=== PATIENT | male | born 1945 | race Caucasian/White ===

== ENCOUNTER 2018-01-29 07:15 | Inpatient (IN) | payer MEDICARE, OTHER ==
[2018-01-29] VITALS (49 sets, daily range): BP systolic 73–112; BP diastolic 44–74; PULSE 66–154; RESP 10–29; TEMP 97.9–99.1; O2SAT 91–100
[~2018-01-29] VITALS: Ht 188 cm; Wt 107.1 kg
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
[2018-01-29 07:43] LABS: BASOPHIL % 0.3 % (0.0-2.0); EOSINOPHIL # 0.2 TH/MM3 (0-0.4); EOSINOPHIL % 1.3 % (0.0-4.0); HEMOGLOBIN 12.9 GM/DL (13.0-17.0); LYMPH % 12.3 % (9.0-44.0); MEAN CELL VOLUME 88.2 FL (80.0-100.0); MEAN CORPUSCULAR HEMOGLOBIN 29.3 PG (27.0-34.0); MEAN CORPUSCULAR HGB CONC 33.1 % (32.0-36.0); MEAN PLATELET VOLUME 7.7 FL (7.0-11.0); MONO % 7.1 % (0.0-8.0); MONOCYTE # 1.2 TH/MM3 (0-0.9); PLATELET COUNT 570 TH/MM3 (150-450); RED BLOOD COUNT 4.42 MIL/MM3 (4.50-5.90); RED CELL DISTRIBUTION WIDTH 12.5 % (11.6-17.2); WHITE BLOOD COUNT 16.4 TH/MM3 (4.0-11.0)
[2018-01-29] MEDS ORDERED: DILTIAZEM INJ 125 MG in SODIUM CHLORIDE 0.9% INJ 100 ML IV PRN (07:45)
[2018-01-29] MEDS ORDERED: DILTIAZEM HCL 25 MG/5 ML VIAL IV PUSH ONE (07:45)
[2018-01-29 07:50] LABS: CHLORIDE 106 MEQ/L (98-107); SODIUM (NA) 138 MEQ/L (136-145)
[2018-01-29 07:54] LABS: ALBUMIN 2.8 GM/DL (3.4-5.0); BICARBONATE 24.6 MEQ/L (21.0-32.0); BLOOD UREA NITROGEN 23 MG/DL (7-18); CALCIUM 9.3 MG/DL (8.5-10.1); GLUCOSE,RANDOM 124 MG/DL (74-106); INTERNATIONAL NORMALIZED RATIO 1.1 RATIO; MAGNESIUM 2.2 MG/DL (1.5-2.5); PROTHROMBIN TIME - PATIENT 11.1 SEC (9.8-11.6)
[2018-01-29 07:57] LABS: ALT (GPT) 44 U/L (12-78); AST (GOT) 21 U/L (15-37)
[2018-01-29 07:58] LABS: GLOMERULAR FILTRATION RATE 66 ML/MIN (>89)
[2018-01-29 07:59] LABS: TOTAL PROTEIN 7.5 GM/DL (6.4-8.2)
[2018-01-29 08:00] LABS: ALKALINE PHOSPHATASE 159 U/L (45-117)
[2018-01-29 08:03] LABS: TROPONIN I LESS THAN 0.02 NG/ML (0.02-0.05)
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
[2018-01-29] MEDS ORDERED: SODIUM CHLOR 0.9% 250 ML INJ 250 ML IV ONE (08:30)
[2018-01-29] MEDS ORDERED: IOHEXOL 350 MG/ML 10 ML VIAL (for RAD DIAG) IVCONTRAST ONE (09:08)
[2018-01-29] MEDS ORDERED: DILTIAZEM HCL 25 MG/5 ML VIAL IV ONE (09:15)
[2018-01-29] MEDS ORDERED: SODIUM CHLORID 0.9% 500 ML INJ 500 ML IV ONE (09:15)
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
[2018-01-29] MEDS ORDERED: MIDAZOLAM HCL 2 MG/2 ML VIAL IV PUSH ONE (10:00)
[2018-01-29] MEDS ORDERED: ALBUMIN 25% INJ 100 ML IV ONE (10:30)
[2018-01-29] MEDS ORDERED: BISACODYL 10 MG SUPP RECTAL PRN (10:45)
[2018-01-29] MEDS ORDERED: SODIUM PHOSPHATE INJ 30 MMOL in SODIUM CHLOR 0.9% 250 ML INJ 240 ML IV PRN (10:45)
[2018-01-29] MEDS ORDERED: SODIUM CHLORIDE 0.9% FLUSH 10 ML FLUSH IV FLUSH PRN (10:45)
[2018-01-29] MEDS ORDERED: CHLORHEXIDINE GLUCONATE 2 % 1 PACK (2 CLOTHS) TOP PRN (10:45)
[2018-01-29] MEDS ORDERED: NURSING INFORMATION XX SCH (10:45)
[2018-01-29] MEDS ORDERED: MAGNESIUM HYDROXIDE SUSP 30 ML CUP PO PRN (10:45)
[2018-01-29] MEDS ORDERED: POTASSIUM PHOSPHATE MONOBASIC 500 MG TAB PO PRN (10:45)
[2018-01-29] MEDS ORDERED: POTASSIUM PHOSPHATE INJ 30 MMOL in SODIUM CHLOR 0.9% 250 ML INJ 250 ML IV PRN (10:45)
[2018-01-29] MEDS ORDERED: POTASSIUM CHLOR 20 MEQ PREMIX 100 ML IV PRN ×2 (10:45)
[2018-01-29] MEDS ORDERED: MAGNESIUM OXIDE 400 MG TAB PO PRN (10:45)
[2018-01-29] MEDS ORDERED: POTASSIUM PHOSPHATE MONOBASIC 500 MG TAB PO/TUBE PRN (10:45)
[2018-01-29] MEDS ORDERED: LACTULOSE SYRUP 20 GM/30 ML CUP PO PRN (10:45)
[2018-01-29] MEDS ORDERED: ONDANSETRON HCL 4 MG/2 ML VIAL IV PUSH PRN (10:45)
[2018-01-29] MEDS ORDERED: MAGNESIUM SULFATE INJ 2 GM in SODIUM CHLORIDE 0.9% INJ 96 ML IV PRN (10:45)
[2018-01-29] MEDS ORDERED: SENNOSIDES 8.6 MG TAB PO PRN (10:45)
[2018-01-29] MEDS ORDERED: POTASSIUM CHLORIDE 25 MEQ EFFERVESCENT TAB PO PRN (10:45)
[2018-01-29] MEDS ORDERED: POTASSIUM CHLOR 40 MEQ PREMIX 100 ML IV PRN ×2 (10:45)
[2018-01-29] MEDS ORDERED: MAGNESIUM SULFATE INJ 4 GM in SODIUM CHLORIDE 0.9% INJ 92 ML IV PRN (10:45)
[2018-01-29] MEDS ORDERED: MAGNESIUM SULFATE 1 GM PREMIX 100 ML IV SCH (11:00)
[2018-01-29] MEDS: METOPROLOL TARTRATE 50 MG TAB PO SCH ×2 (11:00→19:00)
--- NOTE | 2018-01-29 11:01 | PD.PROCEDR ---
Procedure Note Procedure Tube Thoracostomy Procedure Note Left 32 Mongolian thoracostomy tube Diagnosis: Left-sided hemothorax Indications: Large left-sided hemothorax with complete collapse of the left lung causing severe dyspnea as well as new onset atrial fibrillation with rapid ventricular response Consent: Obtained from the patient and his . I specifically discussed the risks, benefits, and alternatives of tube thoracostomy as well as the need for open tube thoracostomy versus percutaneous pigtail tube thoracostomy given his hemothorax. Risks include but are not limited to bleeding, infection, injury to surrounding structures, injury to blood vessels, additional bleeding, injury to the heart, injury to abdominal during organs, malposition of the tube. Anesthesia: Versed 2 mg IV, fentanyl 50 mcg IV Description of the Procedure: The patient was placed in the supine position. The arm was abducted above the head and secured. The left lateral chest was prepped and draped sterilely to include the axilla and nipple. 1% Lidocaine was infiltrated subcutaneously and into the tissues down to the periosteum of the rib. The 5th intercostal space was identified. A small incision was made using a #11 blade. At the mid-axillary line, blunt dissection was performed until the rib was palpated. A Marla clamp was used to bluntly enter the pleura immediately above the adjacent rib. The space was opened bluntly with the Marla clamp. A finger was inserted and lung and pleura were felt. A 32 Fr chest tube was inserted along the course of the finger and into the pleural cavity easily and without resistance. The chest tube was connected to a Pleur-o -vac and connected to [id number] suction. The catheter was sutured to the skin using a 0 silk sandal suture and an occlusive dressing was applied. There were no immediate complications noted. There was minimal EBL. The patient tolerated the procedure well. Chest Tube output: 3L sanguinous output A Chest x-ray has been ordered. I personally performed the procedure. Gregory Hastings MD Jan 29, 2018 11:01
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
[2018-01-29] MEDS ORDERED: HYDROmorphone HCL PF 2 MG/ML VIAL IV PUSH PRN (11:15)
[2018-01-29] MEDS: ENOXAPARIN SODIUM 40 MG/0.4 ML SYRINGE SQ SCH (14:27)
[2018-01-29] MEDS ORDERED: METOPROLOL TARTRATE 5 MG/5 ML VIAL IV PUSH STA (14:44)
[2018-01-29] MEDS ORDERED: METOPROLOL TARTRATE 50 MG TAB PO ONE (14:45)
[2018-01-29] MEDS: MAGNESIUM SULFATE 1 GM PREMIX 100 ML IV SCH ×2 (14:54→15:59)
[2018-01-29] MEDS ORDERED: LACTATED RINGER'S 1000 ML INJ 1,000 ML IV ONE ×2 (15:30→19:00)
[2018-01-29] MEDS: IBUPROFEN 400 MG TAB PO PRN (15:59)
[2018-01-29 19:25] LABS: HEMATOCRIT 31.4 % (39.0-51.0); HEMOGLOBIN 10.4 GM/DL (13.0-17.0)
--- NOTE | 2018-01-29 20:46 | EKG ---
Date Performed: 01/29/2018 Time Performed: 07:32:35 PTAGE: 72 years EKG: ATRIAL FIBRILLATION WITH RAPID VENTRICULAR RESPONSE NONSPECIFIC ST & T-WAVE ABNORMALITY ABN ORMAL RHYTHM ECG PREVIOUS TRACING : 04/26/2006 09.19 Compared to previous tracing, AFIB WITH RVR IS NEW DOCTOR: Mitchell Kelly Interpretating Date/Time 01/29/2018 20:46:48
[2018-01-29] MEDS ORDERED: LACTATED RINGER'S 1000 ML INJ 2,000 ML IV ONE (21:00)
[2018-01-29] MEDS: DOCUSATE SODIUM 50 MG/SENNA 8.6 MG TAB PO SCH (21:00)
[2018-01-29] MEDS: SODIUM CHLORIDE 0.9% FLUSH 10 ML FLUSH IV FLUSH SCH (21:03)
[2018-01-30] VITALS (47 sets, daily range): BP systolic 81–133; BP diastolic 53–82; PULSE 74–138; RESP 7–32; TEMP 97.7–100.3; O2SAT 83–100
[2018-01-30] MEDS: CHLORHEXIDINE GLUCONATE 2 % 1 PACK (2 CLOTHS) TOP SCH (04:00)
[2018-01-30 04:50] LABS: HEMATOCRIT 31.2 % (39.0-51.0); HEMOGLOBIN 10.2 GM/DL (13.0-17.0); MEAN CELL VOLUME 88.9 FL (80.0-100.0); MEAN CORPUSCULAR HGB CONC 32.7 % (32.0-36.0); MEAN PLATELET VOLUME 7.5 FL (7.0-11.0); PLATELET COUNT 383 TH/MM3 (150-450); RED BLOOD COUNT 3.51 MIL/MM3 (4.50-5.90); RED CELL DISTRIBUTION WIDTH 12.7 % (11.6-17.2); WHITE BLOOD COUNT 10.6 TH/MM3 (4.0-11.0)
[2018-01-30 05:06] LABS: CALCIUM 8.1 MG/DL (8.5-10.1)
[2018-01-30 05:12] LABS: BICARBONATE 26.8 MEQ/L (21.0-32.0); CREATININE 0.86 MG/DL (0.60-1.30)
[2018-01-30] MEDS ORDERED: METOPROLOL TARTRATE 50 MG TAB PO SCH (06:00)
--- NOTE | 2018-01-30 06:15 | RADRPT ---
EXAM DATE/TIME: 01/30/2018 05:20 [facility] COMPARISON: CHEST SINGLE AP, January 29, 2018, 10:49. INDICATIONS : Shortness of breath. MEDICAL HISTORY : Melanoma. SURGICAL HISTORY : None. ENCOUNTER: Subsequent ACUITY: 2 days PAIN SCORE: Non-responsive. LOCATION: Bilateral chest FINDINGS: A single view of the chest demonstrates persistent left basilar consolidation/effusion. Left thoracos lucina tube in place with no pneumothorax. Right lung remains clear. Heart size is borderline prominent but appears to be well compensated. Levoscoliosis of the thoracolumbar spine with marginal spurs. Mu ltiple lateral right-sided rib fractures.. CONCLUSION: 1. Stable chest with left basilar consolidation/effusion and multiple left-sided rib fractures. 2. Left thoracostomy tube without pneumothorax. Right lung remains clear. Myles Gamino MD on January 30, 2018 at 6:07 Board Certified Radiologist. This report was verified electronically.
[2018-01-30] MEDS: DILTIAZEM HCL 30 MG TAB PO SCH ×2 (08:24→12:13)
[2018-01-30] MEDS: SODIUM CHLORIDE 0.9% FLUSH 10 ML FLUSH IV FLUSH SCH ×2 (08:24→19:47)
[2018-01-30] MEDS: DOCUSATE SODIUM 50 MG/SENNA 8.6 MG TAB PO SCH ×2 (08:25→19:41)
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
[2018-01-30] MEDS ORDERED: CALCIUM GLUCONATE INJ 3 GM in SODIUM CHLORIDE 0.9% INJ 100 ML IV ONE (10:00)
--- NOTE | 2018-01-30 11:37 | ECHRPT ---
Indication: AFIB FLUTTER CONCLUSIONS Technically very difficult and limited study. Grossly, left ventricular function appears to be norm al. Regional wall motion abnormalities cannot be excluded on the basis of this study. Normal left ventr icular size and wall thickness. Trace to mild tricuspid regurgitation. BP: / HR: Rhythm: MEASUREMENTS (Male / Female) Normal Values Technical Quality:Technically difficult study 2D ECHO LV Diastolic Diameter PLAX 5.0 cm 4.2 - 5.9 / 3.9 - 5.3 cm LV Systolic Diameter PLAX 3.9 cm IVS Diastolic Thickness 1.4 cm 0.6 - 1.0 / 0.6 - 0.9 cm LVPW Diastolic Thickness 1.5 cm 0.6 - 1.0 / 0.6 - 0.9 cm LV Relative Wall Thickness 0.6 RV Internal Dim ED PLAX 2.2 cm M-MODE Aortic Root Diameter MM 3.8 cm LA Systolic Diameter MM 3.5 cm LA Ao Ratio MM 0.9 AV Cusp Separation MM 1.6 cm FINDINGS LEFT VENTRICLE Technically very difficult and limited study. Grossly, left ventricular function appears to be norm al. Regional wall motion abnormalities cannot be excluded on the basis of this study. Normal left ventr icular size and wall thickness. RIGHT VENTRICLE Normal right ventricular size and systolic function. LEFT ATRIUM The left atrial size is normal. RIGHT ATRIUM The right atrial size is normal. ATRIAL SEPTUM Normal atrial septal thickness without atrial level shunting by limited color doppler interrogation. AORTA The aortic root and proximal ascending aorta are normal in size on limited imaging. MITRAL VALVE Structurally normal mitral valve. No mitral valve stenosis or regurgitation. AORTIC VALVE Trileaflet aortic valve. No aortic valve stenosis or regurgitation. TRICUSPID VALVE Structurally normal tricuspid valve. Trace to mild tricuspid regurgitation. PULMONARY VALVE The pulmonary valve is not well visualized. VESSELS The inferior vena cava is normal in size. PERICARDIUM No pericardial effusion. Tomas Saenz MD (Electronically Signed) Final Date:30 Jan 2018 11:36
[2018-01-30] MEDS: MAGNESIUM SULFATE 1 GM PREMIX 100 ML IV SCH ×2 (12:12→15:14)
[2018-01-30] MEDS: ENOXAPARIN SODIUM 40 MG/0.4 ML SYRINGE SQ SCH (12:13)
--- NOTE | 2018-01-30 12:26 | RADRPT ---
EXAM DATE/TIME: 01/30/2018 12:04 [facility] COMPARISON: CHEST SINGLE AP, January 30, 2018, 5:20. INDICATIONS : Pneumothorax. MEDICAL HISTORY : melanoma SURGICAL HISTORY : None. ENCOUNTER: Subsequent ACUITY: 3 days PAIN SCORE: 2/10 LOCATION: Left chest FINDINGS: A single AP erect portable view of the chest was obtained and demonstrates a left-sided chest tube in place with no pneumothorax. There is a [id number] left effusion again noted. Multiple left ri b fractures are present. There is abnormal opacity remaining in the left perihilar region left lung b ase without change. The right lung is clear. The heart size is at the upper limits of normal. There i s no subcutaneous emphysema. CONCLUSION: 1. Left-sided chest tube in place with no pneumothorax. 2. [id number] left pleural effusion again noted with abnormal opacity in the left perihilar re gion. 3. Multiple left rib fractures again noted. Efrem Chavez MD on January 30, 2018 at 12:22 Board Certified Radiologist. This report was verified electronically.
[2018-01-30] MEDS ORDERED: DILTIAZEM HCL 25 MG/5 ML VIAL IV STA (13:20)
[2018-01-30] MEDS ORDERED: DILTIAZEM HCL 30 MG TAB PO ONE (15:00)
[2018-01-30] MEDS: IBUPROFEN 400 MG TAB PO PRN (15:13)
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
[2018-01-30] MEDS ORDERED: DILTIAZEM HCL 60 MG TAB PO ONE (17:15)
[2018-01-30] MEDS ORDERED: METOPROLOL TARTRATE 5 MG/5 ML VIAL IV PUSH STA (17:46)
[2018-01-30] MEDS ORDERED: DILTIAZEM 125 MG/NS 100 ML IV PRN ×2 (18:00)
[2018-01-30] MEDS ORDERED: DILTIAZEM HCL 30 MG TAB PO SCH (18:00)
[2018-01-30] MEDS: ACETAMINOPHEN 325 MG TAB PO PRN (19:42)
[2018-01-30] MEDS ORDERED: AMIODARONE INJ 450 MG in D5W (EXCEL BAG) INJ 241 ML IV PRN (22:15)
[2018-01-30] MEDS ORDERED: AMIODARONE 150 MG/D5W 97 ML BOLUS 10 MINUTES IV ONE ×2 (22:15)
[2018-01-30] MEDS: SODIUM CHLOR 0.9% 1000 ML INJ 1,000 ML IV SCH ×2 (22:59→23:17)
[2018-01-30] MEDS: AMIODARONE INJ 450 MG in SODIUM CHLOR 0.9% (EXCEL) INJ 241 ML IV PRN (23:17)
[2018-01-31] VITALS (39 sets, daily range): BP systolic 85–129; BP diastolic 55–73; PULSE 72–114; RESP 15–30; TEMP 97.5–99.4; O2SAT 94–99
[2018-01-31] MEDS: CHLORHEXIDINE GLUCONATE 2 % 1 PACK (2 CLOTHS) TOP SCH (00:14)
[2018-01-31] MEDS: AMIODARONE INJ 450 MG in SODIUM CHLOR 0.9% (EXCEL) INJ 241 ML IV PRN (07:15)
--- NOTE | 2018-01-31 07:22 | RADRPT ---
EXAM DATE/TIME: 01/31/2018 07:05 [facility] COMPARISON: CT PULMONARY ANGIOGRAM, January 29, 2018, 8:48. CHEST SINGLE AP, January 30, 2018, 12:04. INDICATIONS : Evaluate chest tube. MEDICAL HISTORY : melanoma SURGICAL HISTORY : None. ENCOUNTER: Subsequent ACUITY: 3 days PAIN SCORE: 1/10 LOCATION: Left chest FINDINGS: There is a left chest tube. A pneumothorax is not seen. There continues to be increased density at th e mid and lower left chest. Multiple left rib fractures are seen. The right lung is clear. The left h eart border is obscured by the left base process. CONCLUSION: 1. Left chest tube without pneumothorax. 2. Suspected moderate left pleural effusion with some accompanying atelectasis or consolidation invol ving the mid and lower left chest. 3. Left rib fractures. Deven Stone MD on January 31, 2018 at 7:19 Board Certified Radiologist. This report was verified electronically.
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
--- NOTE | 2018-01-31 07:54 | PD.CARD.PN ---
Subjective Subjective Remarks Required amio last night due to difficult to control rates, then converted to SR where he remains, no cardiac sx. Objective Medications Current Medications Medications (Trade) Dose Ordered Sig/Darrius Route Start Time Stop Time Status Last Admin Potassium Chloride 100 ml @ 50 mls/hr Q2H PRN IV 01/29/18 10:45 Potassium Chloride 100 ml @ 50 mls/hr Q2H PRN IV 01/29/18 10:45 (K-Lyte Cl Eff) 50 meq UNSCH PRN PO 01/29/18 10:45 Potassium Chloride 100 ml @ 25 mls/hr UNSCH PRN IV 01/29/18 10:45 Potassium Chloride 100 ml @ 50 mls/hr Q2H PRN IV 01/29/18 10:45 Magnesium Sulfate 4 gm/Sodium Chloride 100 ml @ 50 mls/hr UNSCH PRN IV 01/29/18 10:45 (Mag-Ox) 800 mg UNSCH PRN PO 01/29/18 10:45 Magnesium Sulfate 2 gm/Sodium Chloride 100 ml @ 50 mls/hr UNSCH PRN IV 01/29/18 10:45 (K-Phos) 2,000 mg Q4H PRN PO 01/29/18 10:45 Sodium Phosphate 30 mmol/Sodium Chloride 250 ml @ 42 mls/hr UNSCH PRN IV 01/29/18 10:45 (K-Phos) 2,000 mg UNSCH PRN PO/TUBE 01/29/18 10:45 Potassium Phosphate 30 mmol/ Sodium Chloride 260 ml @ 42 mls/hr UNSCH PRN IV 01/29/18 10:45 (NS Flush) 2 ml UNSCH PRN IV FLUSH 01/29/18 10:45 (NS Flush) 2 ml BID IV FLUSH 01/29/18 21:00 01/30/18 19:47 (Percocet 5-325 Mg) 1 tab Q4H PRN PO 01/29/18 10:45 (Dilaudid Pf Inj) 0.25 mg Q4H PRN IV PUSH 01/29/18 11:15 (Zofran Inj) 4 mg Q6H PRN IV PUSH 01/29/18 10:45 (Duoneb Neb) 1 ampule Q2HR NEB PRN INH 01/29/18 10:45 (Lovenox Inj) 40 mg Q24H SQ 01/29/18 12:00 01/30/18 12:13 ([facility] [place] [facility] [place]) 1 Q361D XX 01/29/18 10:45 (Chlorhexidine 2% Cloth) 3 pack Taper DAILY@04 TOP 01/30/18 04:00 01/26/19 03:59 01/31/18 00:14 (Chlorhexidine 2% Cloth) 3 pack UNSCH PRN TOP 01/29/18 10:45 (Fe-Colace) 1 tab BID PO 01/29/18 21:00 01/30/18 19:41 (Milk Of Magnesia Liq) 30 ml Q12H PRN PO 01/29/18 10:45 (Senokot) 17.2 mg Q12H PRN PO 01/29/18 10:45 (Dulcolax Supp) 10 mg DAILY PRN RECTAL 01/29/18 10:45 (Lactulose Liq) 30 ml DAILY PRN PO 01/29/18 10:45 (Motrin) 400 mg Q6H PRN PO 01/29/18 15:15 01/30/18 15:13 (Cardizem) 60 mg Q6HR PO 01/30/18 18:00 Future Hold (Tylenol) 650 mg Q4H PRN PO 01/30/18 17:15 01/30/18 19:42 Amiodarone HCl 450 mg/Sodium Chloride 250 ml @ 33.33 mls/ hr TITRATE PRN IV 01/30/18 22:30 01/31/18 07:15 Vital Signs / I&O Vital Signs Date Time Temp Pulse Resp B/P (MAP) Pulse Ox O2 Delivery O2 Flow Rate FiO2 01/31/18 07:36 97 Nasal Cannula 01/31/18 07:15 80 99/66 01/31/18 06:00 76 19 105/70 (82) 97 01/31/18 06:00 76 01/31/18 05:30 74 17 99/65 (76) 98 01/31/18 05:30 74 01/31/18 05:00 74 01/31/18 05:00 74 17 95/66 (76) 98 01/31/18 04:30 74 01/31/18 04:30 74 16 98/64 (75) 99 01/31/18 04:00 72 01/31/18 04:00 97.9 72 16 102/68 (79) 98 01/31/18 03:30 72 17 108/69 (82) 99 01/31/18 03:30 72 01/31/18 03:00 74 19 111/70 (84) 98 01/31/18 03:00 74 01/31/18 02:30 72 16 106/64 (78) 98 01/31/18 02:00 74 15 86/58 (67) 98 01/31/18 02:00 74 01/31/18 01:45 74 16 96/65 (75) 99 01/31/18 01:30 72 17 100/68 (79) 99 01/31/18 01:15 74 16 97/67 (77) 98 01/31/18 01:00 74 15 87/59 (68) 98 01/31/18 00:45 74 15 92/59 (70) 98 01/31/18 00:30 74 15 87/62 (70) 98 01/31/18 00:19 74 15 101/61 (74) 98 01/31/18 00:00 72 15 99/62 (74) 98 01/31/18 00:00 72 01/31/18 00:00 97.5 72 15 99/62 (74) 98 01/30/18 23:30 74 15 87/62 (70) 99 01/30/18 23:17 78 90/56 01/30/18 23:01 76 90/56 01/30/18 23:00 76 15 90/56 (67) 100 01/30/18 22:31 78 17 91/55 (67) 98 01/30/18 22:30 78 17 86/53 (64) 99 01/30/18 22:00 78 15 84/57 (66) 98 01/30/18 22:00 78 01/30/18 21:30 80 16 83/60 (68) 98 01/30/18 21:30 80 83/60 01/30/18 21:00 84 19 90/55 (67) 97 01/30/18 21:00 84 90/55 01/30/18 20:30 84 17 86/53 (64) 97 01/30/18 20:30 84 86/53 01/30/18 20:05 97.8 88 30 112/67 (82) 96 01/30/18 20:00 85 01/30/18 19:45 104 24 107/68 (81) 97 01/30/18 19:30 96 Nasal Cannula 2.00 01/30/18 19:30 108 7 118/65 (82) 96 01/30/18 19:30 108 118/65 01/30/18 19:15 110 10 99/66 (77) 96 01/30/18 19:00 108 21 104/64 (77) 97 01/30/18 19:00 108 01/30/18 19:00 108 104/64 01/30/18 18:44 106 86/63 01/30/18 18:10 124 87/58 01/30/18 17:20 138 101/70 01/30/18 16:30 138 23 102/71 (81) 97 01/30/18 16:20 25 01/30/18 16:00 132 01/30/18 16:00 100.3 132 22 104/63 (77) 97 01/30/18 15:30 134 30 99/65 (76) 95 01/30/18 15:00 128 01/30/18 15:00 128 24 97/69 (78) 96 01/30/18 14:30 134 21 103/82 (89) 83 01/30/18 14:00 132 15 92/61 (71) 98 01/30/18 14:00 132 01/30/18 13:30 132 23 112/68 (83) 97 01/30/18 13:02 134 01/30/18 13:02 134 32 133/74 (93) 95 01/30/18 12:30 136 32 103/78 (86) 91 01/30/18 12:08 99.2 128 25 109/66 (80) 97 01/30/18 12:00 98 01/30/18 11:30 98 28 97/71 (80) 97 01/30/18 11:00 94 25 87/68 (74) 97 01/30/18 11:00 94 01/30/18 10:30 84 22 108/65 (79) 96 01/30/18 10:00 114 23 108/64 (79) 99 01/30/18 10:00 114 01/30/18 09:00 106 25 106/67 (80) 98 01/30/18 08:00 98 01/30/18 08:00 98.3 98 18 109/73 (85) 98 I/O 01/30/18 01/30/18 01/30/18 01/31/18 01/31/18 01/31/18 07:00 15:00 23:00 07:00 15:00 23:00 Intake Total 240 ml 864 ml 240 ml Output Total 1025 ml 520 ml 800 ml Balance -785 ml 344 ml -560 ml Intake Oral 240 ml 500 ml 240 ml IV Total 364 ml Output Urine Total 975 ml 450 ml 800 ml Chest Tube Drainage Total 50 ml 70 ml # Bowel Movements 0 0 Physical Exam GENERAL: This is a well-nourished, well-developed patient, in no apparent distress. CARDIOVASCULAR: Regular rate and rhythm without murmurs, gallops, or rubs. RESPIRATORY: Clear to auscultation. Breath sounds equal bilaterally. No wheezes , rales, or rhonchi. GASTROINTESTINAL: Abdomen soft, non-tender, nondistended. Normal active bowel sounds MUSCULOSKELETAL: Extremities without clubbing, cyanosis, or edema. NEURO: Alert & Oriented x4 to person, place, time, situation. Moves all ext x4 Imaging Last 24 hours Impressions Chest X-Ray 01/31/18 0000 Signed Impressions: Service Date/Time: Wednesday, January 31, 2018 07:05 - CONCLUSION: 1. Left chest tube without pneumothorax. 2. Suspected moderate left pleural effusion with some accompanying atelectasis or consolidation involving the mid and lower left chest. 3. Left rib fractures. Deven Stone MD Chest X-Ray 01/30/18 1200 Signed Impressions: Service Date/Time: Tuesday, January 30, 2018 12:04 - CONCLUSION: 1. Left-sided chest tube in place with no pneumothorax. 2. [id number] left pleural effusion again noted with abnormal opacity in the left perihilar region. 3. Multiple left rib fractures again noted. Efrem Chavez MD Assessment and Plan Problem List: (1) Rapid atrial fibrillation ICD Codes: I48.91 - Unspecified atrial fibrillation Status: Acute Plan: Very likely caused by his hemothorax, currently in NSR; not currently an anticoagulation candidate; If he remains in SR would favor d/c geovanna and Dr. Hudson can f/u in the office; he may benefit from either a 30-day holter or loop recorder to evaluate long-term afib burden. (2) Hemothorax, left ICD Codes: J94.2 - Hemothorax Status: Acute Assessment and Plan will be available as needed, please call with questions. Wilner Gonsalez MD January 31, 2018 07:54
[2018-01-31 08:54] LABS: HEMATOCRIT 33.2 % (39.0-51.0); HEMOGLOBIN 10.7 GM/DL (13.0-17.0); MEAN CELL VOLUME 89.7 FL (80.0-100.0); MEAN CORPUSCULAR HEMOGLOBIN 28.9 PG (27.0-34.0); MEAN CORPUSCULAR HGB CONC 32.3 % (32.0-36.0); MEAN PLATELET VOLUME 8.2 FL (7.0-11.0); PLATELET COUNT 368 TH/MM3 (150-450); RED CELL DISTRIBUTION WIDTH 12.5 % (11.6-17.2); WHITE BLOOD COUNT 13.7 TH/MM3 (4.0-11.0)
[2018-01-31 09:09] LABS: CALCIUM 8.2 MG/DL (8.5-10.1)
[2018-01-31 09:10] LABS: BICARBONATE 24.6 MEQ/L (21.0-32.0); MAGNESIUM 2.2 MG/DL (1.5-2.5)
[2018-01-31 09:14] LABS: CREATININE 0.8 MG/DL (0.60-1.30)
[2018-01-31] MEDS: SODIUM CHLORIDE 0.9% FLUSH 10 ML FLUSH IV FLUSH SCH ×2 (09:34→20:00)
[2018-01-31] MEDS: DILTIAZEM HCL 30 MG TAB PO SCH ×3 (09:34→19:28)
[2018-01-31] MEDS: DOCUSATE SODIUM 50 MG/SENNA 8.6 MG TAB PO SCH ×2 (09:35→19:59)
[2018-01-31] MEDS: ENOXAPARIN SODIUM 40 MG/0.4 ML SYRINGE SQ SCH (12:47)
--- NOTE | 2018-01-31 14:41 | RADRPT ---
EXAM DATE/TIME: 01/31/2018 14:07 [facility] COMPARISON: CHEST SINGLE AP, January 31, 2018, 7:05. INDICATIONS : Chest tube removal, short of breath, some increased chest pain. MEDICAL HISTORY : melanoma SURGICAL HISTORY : None. ENCOUNTER: Subsequent ACUITY: 3 days PAIN SCORE: 4/10 LOCATION: Left chest FINDINGS: There is been interval removal of the left-sided chest tube. There is minimal left basilar effusion. There is consolidation in the left lower lobe. No pneumothorax is seen. The right lung is clear. The heart is mildly enlarged. There are multiple left-sided rib fractures. CONCLUSION: 1. No pneumothorax identified following chest tube removal. 2. Consolidative changes in the left lower lobe. Ger Yanes MD on January 31, 2018 at 14:38 Board Certified Radiologist. This report was verified electronically.
[2018-01-31] MEDS: IBUPROFEN 400 MG TAB PO PRN (16:33)
[2018-01-31] MEDS: RESP: ALBUTEROL 2.5 MG/IPRATROPIUM 0.5 MG NEB (PRN) INH (16:53)
[2018-02-01] VITALS (29 sets, daily range): BP systolic 90–115; BP diastolic 58–79; PULSE 80–116; RESP 18–32; TEMP 97.6–99; O2SAT 88–100
[2018-02-01] MEDS: DILTIAZEM HCL 30 MG TAB PO SCH ×3 (00:51→09:25)
[2018-02-01] MEDS: ACETAMINOPHEN 325 MG TAB PO PRN (00:56)
[2018-02-01] MEDS: CHLORHEXIDINE GLUCONATE 2 % 1 PACK (2 CLOTHS) TOP SCH (03:49)
[2018-02-01] MEDS ORDERED: AMIODARONE INJ 450 MG in SODIUM CHLOR 0.9% (EXCEL) INJ 241 ML IV PRN (06:30)
--- NOTE | 2018-02-01 06:46 | RADRPT ---
EXAM DATE/TIME: 02/01/2018 06:04 [facility] COMPARISON: CHEST SINGLE AP, January 31, 2018, 14:07. INDICATIONS : Shortness of breath MEDICAL HISTORY : Melanoma SURGICAL HISTORY : None. ENCOUNTER: Subsequent ACUITY: 4 - 6 days PAIN SCORE: 3/10 LOCATION: Left chest FINDINGS: PA and lateral views of the chest demonstrate multiple left-sided displaced lateral rib fractures. Pe rsistent consolidation/effusion in the adjacent lung parenchyma. There appears be some minimal atelec tasis or scarring in the right midlung laterally. Right lung is otherwise clear. Heart size is normal . CONCLUSION: 1. Multiple left-sided rib fractures. Stable consolidation/effusion in the adjacent left lung base. 2. Minimal atelectasis or scarring laterally in the right midlung. Right lung is otherwise clear. Myles Gamino MD on February 01, 2018 at 6:43 Board Certified Radiologist. This report was verified electronically.
[2018-02-01] MEDS: RESP: ALBUTEROL 2.5 MG/IPRATROPIUM 0.5 MG NEB (PRN) INH ×2 (08:13→16:07)
[2018-02-01] MEDS: SODIUM CHLORIDE 0.9% FLUSH 10 ML FLUSH IV FLUSH SCH ×2 (08:48→20:53)
[2018-02-01] MEDS: DOCUSATE SODIUM 50 MG/SENNA 8.6 MG TAB PO SCH ×2 (08:48→20:53)
[2018-02-01] MEDS ORDERED: DILTIAZEM HCL 30 MG TAB PO ONE (09:30)
--- NOTE | 2018-02-01 12:25 | PD.CARD.PN ---
Subjective Subjective Remarks Went back into afib, rate mildly fast at rest. Objective Medications Current Medications Medications (Trade) Dose Ordered Sig/Darrius Route Start Time Stop Time Status Last Admin Potassium Chloride 100 ml @ 50 mls/hr Q2H PRN IV 01/29/18 10:45 Potassium Chloride 100 ml @ 50 mls/hr Q2H PRN IV 01/29/18 10:45 (K-Lyte Cl Eff) 50 meq UNSCH PRN PO 01/29/18 10:45 Potassium Chloride 100 ml @ 25 mls/hr UNSCH PRN IV 01/29/18 10:45 Potassium Chloride 100 ml @ 50 mls/hr Q2H PRN IV 01/29/18 10:45 Magnesium Sulfate 4 gm/Sodium Chloride 100 ml @ 50 mls/hr UNSCH PRN IV 01/29/18 10:45 (Mag-Ox) 800 mg UNSCH PRN PO 01/29/18 10:45 Magnesium Sulfate 2 gm/Sodium Chloride 100 ml @ 50 mls/hr UNSCH PRN IV 01/29/18 10:45 (K-Phos) 2,000 mg Q4H PRN PO 01/29/18 10:45 Sodium Phosphate 30 mmol/Sodium Chloride 250 ml @ 42 mls/hr UNSCH PRN IV 01/29/18 10:45 (K-Phos) 2,000 mg UNSCH PRN PO/TUBE 01/29/18 10:45 Potassium Phosphate 30 mmol/ Sodium Chloride 260 ml @ 42 mls/hr UNSCH PRN IV 01/29/18 10:45 (NS Flush) 2 ml UNSCH PRN IV FLUSH 01/29/18 10:45 (NS Flush) 2 ml BID IV FLUSH 01/29/18 21:00 02/01/18 08:48 (Percocet 5-325 Mg) 1 tab Q4H PRN PO 01/29/18 10:45 (Dilaudid Pf Inj) 0.25 mg Q4H PRN IV PUSH 01/29/18 11:15 (Zofran Inj) 4 mg Q6H PRN IV PUSH 01/29/18 10:45 (Duoneb Neb) 1 ampule Q2HR NEB PRN INH 01/29/18 10:45 02/01/18 08:13 (Lovenox Inj) 40 mg Q24H SQ 01/29/18 12:00 5//18 12:47 ([facility] [place] [facility] [place]) 1 Q361D XX 01/29/18 10:45 (Chlorhexidine 2% Cloth) 3 pack Taper DAILY@04 TOP 01/30/18 04:00 01/26/19 03:59 02/01/18 03:49 (Chlorhexidine 2% Cloth) 3 pack UNSCH PRN TOP 01/29/18 10:45 (Fe-Colace) 1 tab BID PO 01/29/18 21:00 02/01/18 08:48 (Milk Of Magnesia Liq) 30 ml Q12H PRN PO 01/29/18 10:45 (Senokot) 17.2 mg Q12H PRN PO 01/29/18 10:45 (Dulcolax Supp) 10 mg DAILY PRN RECTAL 01/29/18 10:45 (Lactulose Liq) 30 ml DAILY PRN PO 01/29/18 10:45 (Motrin) 400 mg Q6H PRN PO 01/29/18 15:15 01/31/18 16:33 (Tylenol) 650 mg Q4H PRN PO 01/30/18 17:15 02/01/18 00:56 (Cardizem) 60 mg Q6HR PO 02/01/18 12:00 Vital Signs / I&O Vital Signs Date Time Temp Pulse Resp B/P (MAP) Pulse Ox O2 Delivery O2 Flow Rate FiO2 02/01/18 08:11 96 Nasal Cannula 3.00 02/01/18 08:00 97.6 116 28 113/79 (90) 93 02/01/18 08:00 102 02/01/18 04:13 96 02/01/18 04:00 97.6 106 21 105/70 (82) 96 02/01/18 03:27 102 18 98/71 (80) 97 02/01/18 02:00 82 19 99/62 (74) 97 02/01/18 01:56 16 02/01/18 01:55 82 21 96/62 (73) 97 02/01/18 01:00 84 32 107/62 (77) 97 02/01/18 00:00 97.8 80 18 90/58 (69) 100 02/01/18 00:00 93 01/31/18 23:30 84 21 99/62 (74) 96 01/31/18 22:30 80 18 91/55 (67) 97 01/31/18 21:30 84 22 93/59 (70) 97 01/31/18 21:00 88 25 97/59 (72) 96 01/31/18 20:03 93 01/31/18 20:00 92 28 111/62 (78) 96 01/31/18 19:36 96 Nasal Cannula 3.00 01/31/18 19:30 92 24 85/61 (69) 97 01/31/18 19:00 96 28 96/58 (71) 96 01/31/18 18:30 100 27 94/61 (72) 95 01/31/18 18:00 104 30 100/66 (77) 94 01/31/18 16:00 99.4 108 26 129/71 (90) 97 01/31/18 16:00 114 01/31/18 15:00 106 25 115/72 (86) 97 01/31/18 15:00 106 01/31/18 14:00 100 27 129/73 (91) 98 01/31/18 14:00 100 01/31/18 13:00 98 22 119/72 (88) 98 01/31/18 12:30 98.6 96 21 110/68 (82) 97 I/O 01/31/18 01/31/18 01/31/18 02/01/18 02/01/18 02/01/18 07:00 15:00 23:00 07:00 15:00 23:00 Intake Total 240 ml 6 ml 720 ml Output Total 800 ml 350 ml 1000 ml Balance -560 ml 6 ml 370 ml -1000 ml Intake Oral 240 ml 720 ml IV Total 6 ml Output Urine Total 800 ml 350 ml 1000 ml # Bowel Movements 0 1 Physical Exam GENERAL: This is a well-nourished, well-developed patient, in no apparent distress. CARDIOVASCULAR: Mildly fast rate and irregular rhythm without murmurs, gallops, or rubs. RESPIRATORY: Clear to auscultation. Breath sounds equal bilaterally. No wheezes , rales, or rhonchi. GASTROINTESTINAL: Abdomen soft, non-tender, nondistended. Normal active bowel sounds MUSCULOSKELETAL: Extremities without clubbing, cyanosis, or edema. NEURO: Alert & Oriented x4 to person, place, time, situation. Moves all ext x4 Imaging Last 24 hours Impressions Chest X-Ray 02/01/18 0600 Signed Impressions: Service Date/Time: January 06:04 - CONCLUSION: 1. Multiple left-sided rib fractures. Stable consolidation/effusion in the adjacent left lung base. 2. Minimal atelectasis or scarring laterally in the right midlung. Right lung is otherwise clear. Myles Gamino MD Assessment and Plan Problem List: (1) Rapid atrial fibrillation ICD Codes: I48.91 - Unspecified atrial fibrillation Status: Acute Plan: Very likely caused by his hemothorax, not currently an anticoagulation candidate thusly; short acting cardizem just increased, bp marginal, if this controls rates recommend changing to long acting (240mg qd) tomorrow (2) Hemothorax, left ICD Codes: J94.2 - Hemothorax Status: Acute Assessment and Plan He is asking to be d/c home, if rates good w/ med changes, could change to long acting dilt and d/c tomorrow to f/u with Dr. aggarwal. will be available as needed, please call with questions. Wilner Gonsalez MD February 01, 2018 12:25
--- NOTE | 2018-02-01 13:30 | HHI.PR ---
Subjective Remarks Patient doing well. Out of bed to chair today. No new complaints. Discharge plan discussed with patient and with nursing team. Patient's x-ray today does show some residual fluid and on exam patient does have decreased breath sounds in the left lower lung Objective Vitals Vital Signs Date Time Temp Pulse Resp B/P (MAP) Pulse Ox O2 Delivery O2 Flow Rate FiO2 02/01/18 08:11 96 Nasal Cannula 3.00 02/01/18 08:00 97.6 116 28 113/79 (90) 93 02/01/18 08:00 102 02/01/18 04:13 96 02/01/18 04:00 97.6 106 21 105/70 (82) 96 02/01/18 03:27 102 18 98/71 (80) 97 02/01/18 02:00 82 19 99/62 (74) 97 02/01/18 01:56 16 02/01/18 01:55 82 21 96/62 (73) 97 02/01/18 01:00 84 32 107/62 (77) 97 02/01/18 00:00 97.8 80 18 90/58 (69) 100 02/01/18 00:00 93 01/31/18 23:30 84 21 99/62 (74) 96 01/31/18 22:30 80 18 91/55 (67) 97 01/31/18 21:30 84 22 93/59 (70) 97 01/31/18 21:00 88 25 97/59 (72) 96 01/31/18 20:03 93 01/31/18 20:00 92 28 111/62 (78) 96 01/31/18 19:36 96 Nasal Cannula 3.00 01/31/18 19:30 92 24 85/61 (69) 97 01/31/18 19:00 96 28 96/58 (71) 96 01/31/18 18:30 100 27 94/61 (72) 95 01/31/18 18:00 104 30 100/66 (77) 94 01/31/18 16:00 99.4 108 26 129/71 (90) 97 01/31/18 16:00 114 01/31/18 15:00 106 25 115/72 (86) 97 01/31/18 15:00 106 01/31/18 14:00 100 27 129/73 (91) 98 01/31/18 14:00 100 I/O 01/31/18 01/31/18 01/31/18 02/01/18 02/01/18 02/01/18 07:00 15:00 23:00 07:00 15:00 23:00 Intake Total 240 ml 6 ml 720 ml Output Total 800 ml 350 ml 1000 ml Balance -560 ml 6 ml 370 ml -1000 ml Intake Oral 240 ml 720 ml IV Total 6 ml Output Urine Total 800 ml 350 ml 1000 ml # Bowel Movements 0 1 Result Diagram: 01/31/1879901/31/18799 Imaging Last Impressions Chest X-Ray 02/01/18599 Signed Impressions: Service Date/Time: January 06:04 - CONCLUSION: 1. Multiple left-sided rib fractures. Stable consolidation/effusion in the adjacent left lung base. 2. Minimal atelectasis or scarring laterally in the right midlung. Right lung is otherwise clear. Myles Gamino MD CT Angiography 01/29/18800 Signed Impressions: Service Date/Time: Monday, January 29, 2018 08:48 - CONCLUSION: 1. The study is negative for pulmonary embolism. 2. Collapse of the left lower lobe and lingula with very large left pleural effusion. 3. Subsegmental consolidative infiltrate in the posterior right lower lung. 4. Possible pericardial effusion. Cezar Matthews MD Abdomen/Pelvis CT 01/29/18800 Signed Impressions: Service Date/Time: Monday, January 29, 2018 08:48 - CONCLUSION: 1. Multiple left-sided rib fractures with moderate to large probable left-sided subacute hemothorax. 2. Focal air space consolidation in the right lung base which may reflect atelectasis or pulmonary contusion. 3. No CT evidence for significant traumatic injury in the abdomen or pelvis. Kai Meyer MD Objective Remarks GENERAL: This is a well-nourished, well-developed patient, in no apparent distress. CARDIOVASCULAR: afib rhythm without murmurs, gallops, or rubs. RESPIRATORY: Decreased breath sounds in the left lower lung with rhonchi GASTROINTESTINAL: Abdomen soft, non-tender, nondistended. Normal active bowel sounds MUSCULOSKELETAL: Extremities without clubbing, cyanosis, or edema. NEURO: Alert & Oriented x4 to person, place, time, situation. Moves all ext x4 A/P Problem List: (1) Hemothorax, left ICD Code: J94.2 - Hemothorax Status: Acute Plan: Repeat chest x-ray shows some residual fluid. Patient feels better. (2) Rapid atrial fibrillation ICD Code: I48.91 - Unspecified atrial fibrillation Status: Acute Plan: Continue with rate control on current medications Cardiology evaluation appreciated (3) Rib fracture ICD Code: S22.39XA - Fracture of one rib, unspecified side, initial encounter for closed fracture Plan: Continue pulmonary toilet aggressively Discharge Planning home 2-3 days transfer to floor in am if stable Vira Bunn MD February 01, 2018 13:30
[2018-02-01] MEDS: DILTIAZEM HCL 60 MG TAB PO SCH ×2 (14:05→17:21)
[2018-02-01] MEDS: ENOXAPARIN SODIUM 40 MG/0.4 ML SYRINGE SQ SCH (14:05)
[2018-02-01] MEDS: IBUPROFEN 400 MG TAB PO PRN (17:24)
[2018-02-02] VITALS (47 sets, daily range): BP systolic 88–135; BP diastolic 57–73; PULSE 90–131; RESP 13–34; TEMP 97.4–101; O2SAT 86–98
[2018-02-02] MEDS: DILTIAZEM HCL 60 MG TAB PO SCH ×2 (01:00→06:55)
[2018-02-02] MEDS: oxyCODONE/ACETAMINOPHEN 5 MG/325 MG TAB PO PRN ×2 (03:57→19:46)
[2018-02-02] MEDS: CHLORHEXIDINE GLUCONATE 2 % 1 PACK (2 CLOTHS) TOP SCH (04:00)
[2018-02-02] MEDS: DOCUSATE SODIUM 50 MG/SENNA 8.6 MG TAB PO SCH ×2 (08:54→19:47)
[2018-02-02] MEDS: SODIUM CHLORIDE 0.9% FLUSH 10 ML FLUSH IV FLUSH SCH ×2 (08:54→19:46)
[2018-02-02] MEDS ORDERED: IBUPROFEN 400 MG TAB PO ONE (11:00)
--- NOTE | 2018-02-02 14:06 | HHI.PR ---
Subjective Remarks Patient seen and evaluated in follow-up for hemothorax with new onset atrial fibrillation. Rate is better controlled on Cardizem. Patient still a bit hypoxemic and weak. 86% to 89% with walking on room air although he did walk 400 feet. Patient appears to have a bit of volume overload with increasing kilograms of about 4 since arrival. 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 Objective Vitals Vital Signs Date Time Temp Pulse Resp B/P (MAP) Pulse Ox O2 Delivery O2 Flow Rate FiO2 02/02/18 12:00 94 02/02/18 12:00 100 02/02/18 12:00 97.8 114 34 128/67 (87) 86 02/02/18 11:00 96 25 105/61 (76) 95 02/02/18 10:00 94 13 105/60 (75) 96 02/02/18 10:00 94 02/02/18 09:41 102 30 133/68 (89) 91 02/02/18 09:00 90 22 107/67 (80) 96 02/02/18 08:00 97.4 102 26 104/64 (77) 92 02/02/18 08:00 100 02/02/18 07:55 93 Nasal Cannula 2.00 02/02/18 05:15 94 18 95 02/02/18 05:00 98 16 94 02/02/18 04:45 94 17 94 02/02/18 04:30 94 17 96 02/02/18 04:26 96 17 95/58 (70) 95 02/02/18 04:15 94 21 96 02/02/18 04:00 96 02/02/18 04:00 97.6 95 18 95 02/02/18 04:00 96 22 94 02/02/18 03:45 100 18 94 02/02/18 03:30 100 20 96 02/02/18 03:26 102 21 88/66 (73) 94 02/02/18 03:15 100 23 93 02/02/18 03:00 92 20 97 02/02/18 02:45 102 21 95 02/02/18 02:30 102 21 95 02/02/18 02:26 100 18 96/57 (70) 96 02/02/18 02:15 98 18 96 02/02/18 02:00 98 18 97 02/02/18 02:00 98 02/02/18 01:45 100 19 96 5//18 01:30 102 21 96 02/02/18 01:15 106 20 96 5/18 01:00 102 19 97 /01/17 00:45 102 20 97 //18 00:30 106 18 97 5//18 00:25 102 15 99/62 (74) 98 18 00:15 100 16 97 02/02/18 00:00 98 18 98 02/02/18 00:00 97.6 101 25 96 18 00:00 98 02/02/18 00:00 101 02/01/18 23:00 102 21 96 02/01/18 22:45 96 18 96 02/01/18 22:30 100 19 96 02/01/18 22:25 98 18 93/65 (74) 96 02/01/18 22:15 102 20 95 02/01/ 22:00 102 21 96 02/01/18 22:00 102 02/01/18 21:45 100 22 96 02/01/18 21:30 100 23 95 02/01/18 21:25 100 32 100/64 (76) 94 18 21:15 100 25 94 //18 21:00 100 26 95 02/01/ 20:45 92 21 95 02/01/ 20:30 94 23 96 //18 20:25 94 22 94/62 (73) 95 02/01/ 20:15 94 22 94 // 20:00 102 02/01/18 20:00 102 26 94 02/01/18 20:00 99.0 102 30 94 02/01/18 19:36 94 Nasal Cannula 2.00 02/01/18 17:00 108 31 110/68 (82) 94 02/01/18 16:00 108 02/01/ 16:00 99.0 110 20 115/63 (80) 96 I/O 5/18 5//18 5//18 5//18 5//18 5//18 07:00 15:00 23:00 07:00 15:00 23:00 Intake Total 960 ml 480 ml 120 ml Output Total 1000 ml 600 ml 875 ml Balance -1000 ml 360 ml -395 ml 120 ml Intake Oral 960 ml 480 ml 120 ml Output Urine Total 1000 ml 600 ml 875 ml # Bowel Movements 0 Result Diagram: 01/31/18 0800 01/31/18 0800 Objective Remarks GENERAL: This is a well-nourished, well-developed patient, in no apparent distress. CARDIOVASCULAR: afib rhythm without murmurs, gallops, or rubs. RESPIRATORY: Decreased breath sounds in the left lower lung with rhonchi GASTROINTESTINAL: Abdomen soft, non-tender, nondistended. Normal active bowel sounds MUSCULOSKELETAL: Extremities without clubbing, cyanosis, or edema. NEURO: Alert & Oriented x4 to person, place, time, situation. Moves all ext x4 A/P Problem List: (1) Hemothorax, left ICD Code: J94.2 - Hemothorax Status: Acute Plan: Repeat chest x-ray shows some residual fluid. Patient feels better. Repeat chest x-ray in a.m. Continue O2 supplementation (2) Rapid atrial fibrillation ICD Code: I48.91 - Unspecified atrial fibrillation Status: Acute Plan: Currently controlled on oral Cardizem Not on anticoagulation due to acute medical issues Outpatient follow-up with cardiology (3) Rib fracture ICD Code: S22.39XA - Fracture of one rib, unspecified side, initial encounter for closed fracture Plan: Continue pulmonary toilet aggressively (4) Acute hypoxemic respiratory failure ICD Code: J96.01 - Acute respiratory failure with hypoxia Plan: Likely multifactorial Will follow overnight after Lasix given patient's weight gain If no improvement will likely check repeat chest x-ray in a.m. to check for residual effusion Discharge Planning home 2-3 days transfer to [facility] Vira Bunn MD February 02, 2018 14:06
--- NOTE | 2018-02-02 14:07 | HHI.FF ---
Face to Face Verification Diagnosis: (1) Acute hypoxemic respiratory failure (2) Rib fracture Physical Therapy Order: Evaluate and Treat, Improve ambulation, Strength and gait training Home Health Nursing Order: Medical education Signs/symptoms of disease process I have seen patient Tereso Tay Jr Isabella on 02/02/18. My clinical findings support the need for the requested home health care services because: Patient has SOB I certify that my clinical findings support that this patient is homebound because: Unsteady gait/balance Vira Bunn MD February 02, 2018 14:07
[2018-02-02] MEDS: DILTIAZEM-CD 240 MG CAP ER PO SCH (14:09)
[2018-02-02] MEDS ORDERED: FUROSEMIDE 20 MG/2 ML VIAL IV PUSH ONE (14:30)
[2018-02-03] VITALS (8 sets, daily range): BP systolic 100–127; BP diastolic 64–86; PULSE 83–114; RESP 18–20; TEMP 96–97.4; O2SAT 92–94
[2018-02-03] MEDS: CHLORHEXIDINE GLUCONATE 2 % 1 PACK (2 CLOTHS) TOP SCH (03:00)
[2018-02-03 07:20] LABS: AUTOMATED NEUTROPHIL # 8.1 TH/MM3 (1.8-7.7); BASOPHIL % 0.3 % (0.0-2.0); EOSINOPHIL # 0.2 TH/MM3 (0-0.4); EOSINOPHIL % 2.1 % (0.0-4.0); HEMATOCRIT 30.7 % (39.0-51.0); HEMOGLOBIN 10.1 GM/DL (13.0-17.0); LYMPH % 12.1 % (9.0-44.0); LYMPHOCYTE # 1.2 TH/MM3 (1.0-4.8); MEAN CELL VOLUME 88.7 FL (80.0-100.0); MEAN CORPUSCULAR HEMOGLOBIN 29.3 PG (27.0-34.0); MEAN CORPUSCULAR HGB CONC 33.1 % (32.0-36.0); MEAN PLATELET VOLUME 7.6 FL (7.0-11.0); MONOCYTE # 0.8 TH/MM3 (0-0.9); NEUT % 77.5 % (16.0-70.0); PLATELET COUNT 466 TH/MM3 (150-450); RED BLOOD COUNT 3.46 MIL/MM3 (4.50-5.90); RED CELL DISTRIBUTION WIDTH 12.8 % (11.6-17.2); WHITE BLOOD COUNT 10.3 TH/MM3 (4.0-11.0)
[2018-02-03 08:06] LABS: CALCIUM 8.3 MG/DL (8.5-10.1)
[2018-02-03 08:07] LABS: BICARBONATE 26.8 MEQ/L (21.0-32.0)
[2018-02-03 08:10] LABS: CREATININE 0.86 MG/DL (0.60-1.30)
--- NOTE | 2018-02-03 08:14 | RADRPT ---
EXAM DATE/TIME: 02/03/2018 07:56 [facility] COMPARISON: CHEST PA & LAT, February 01, 2018, 6:04. CHEST SINGLE AP, January 31, 2018, 14:07. INDICATIONS : Short of breath MEDICAL HISTORY : Melanoma SURGICAL HISTORY : None. ENCOUNTER: Subsequent ACUITY: 1 week PAIN SCORE: 0/10 LOCATION: Bilateral chest FINDINGS: Portable AP view of the chest demonstrates a normal-sized cardiac silhouette. There is stable moderat e size left basilar pleural-parenchymal opacity. Small right basilar opacity is present. No pneumotho rax is seen. Displaced left rib fractures remain visualized. CONCLUSION: 1. Stable chest x-ray with moderate size left pleural effusion with associated volume loss and/or con solidation at the left lung base. 2. Stable small right pleural effusion with atelectasis at the right base. 3. Stable left rib fractures. Deven Coyle MD on February 03, 2018 at 8:10 Board Certified Radiologist. This report was verified electronically.
[2018-02-03] MEDS: SODIUM CHLORIDE 0.9% FLUSH 10 ML FLUSH IV FLUSH SCH (08:41)
[2018-02-03] MEDS: DILTIAZEM-CD 240 MG CAP ER PO SCH (08:43)
[2018-02-03] MEDS: DOCUSATE SODIUM 50 MG/SENNA 8.6 MG TAB PO SCH (08:47)
[2018-02-03] MEDS ORDERED: DILTIAZEM-CD 240 MG CAP ER PO SCH (11:00)
[2018-02-03] MEDS ORDERED: DILT240C44 PO (11:47)
[2018-02-03] MEDS ORDERED: OXYC1TAB63 PO (11:47)
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
[2018-02-03] MEDS ORDERED: OXYGENDME NAS.CANULA (13:00)
--- NOTE | 2018-02-03 13:02 | HHI.FF ---
Face to Face Verification Diagnosis: (1) Acute hypoxemic respiratory failure (2) Hemothorax, left (3) Rib fracture (4) Rapid atrial fibrillation Physical Therapy Order: Evaluate and Treat, Improve ambulation, Strength and gait training Home Health Nursing Order: Medical education Signs/symptoms of disease process Oxygen administration education Medication education-adverse effect Nursing assessment with vital signs I have seen patient Tereso LackeyJr amador on 02/03/18. My clinical findings support the need for the requested home health care services because: Ltd mobility - disease progression Patient has SOB Deconditioned w/ increased weakness High risk of falls I certify that my clinical findings support that this patient is homebound because: Unsteady gait/balance Unsafe to leave home unassisted Efrem Bull DO February 03, 2018 13:01
== END 2018-02-03 16:34 | disposition home health service (06) | DRG 200 ==
LOC: PHED 07:15 → PHEDA 10:08 → PHICU 11:33 → UNDODISIN 01-30 13:58 → PH3B 02-02 20:48
PROVIDERS: ADMIT Hospitalist; ATTEND Hospitalist
PROC: 0W9B30Z Drainage of Left Pleural Cavity with Drainage Device, Percutaneous Approach (ICD-10-PCS; principal; 2018-01-29)
DX: S27.1XXA Traumatic hemothorax, initial encounter (principal); J90 Pleural effusion, not elsewhere classified; S27.329A Contusion of lung, unspecified, initial encounter; I48.91 Unspecified atrial fibrillation; S22.42XA Multiple fractures of ribs, left side, initial encounter for closed fracture; E87.70 Fluid overload, unspecified; J98.19 Other pulmonary collapse; E78.5 Hyperlipidemia, unspecified; D64.9 Anemia, unspecified; V89.2XXA Person injured in unspecified motor-vehicle accident, traffic, initial encounter; Y92.410 Unspecified street and highway as the place of occurrence of the external cause; Z85.46 Personal history of malignant neoplasm of prostate; Z85.820 Personal history of malignant melanoma of skin; Z87.891 Personal history of nicotine dependence; Z92.3 Personal history of irradiation
CPT/HCPCS: 71045; 71046; 71275; 74177; 80048; 80053; 83735; 83880; 84443; 84484; 85014; 85018; 85025; 85027; 85610; 85730; 86850; 86900; 86901; 87641; 93005; 93306; 94150; 94618; 94640; 94664; 94667; 94668; 96361; 96365; 96375; 96376; J0282; J0610; J1650; J1940; J2250; J3010; J3475; J7030; J7040; J7050; J7120; P9047; Q9967